=== PATIENT | male | born 1965 | race Caucasian/White ===

== ENCOUNTER 2024-09-04 09:46 | Day surgery (SDC) | payer OTHER, SELFPAY ==
[2024-09-03 11:07] VITALS: BMI 35.2
[2024-09-04 10:04] VITALS: BP 171/77; PULSE 78; RESP 16; TEMP 36.7; O2SAT 96
[2024-09-04] MEDS: LACTATED RINGERS 1000ML 1,000 ML 50 ML IV (10:09)
--- NOTE | 2024-09-04 11:21 | EXP.HP ---
History of Present Illness *Admission Date: 09/04/24 *Reason for visit:: Functional dyspepsia *History of present illness: Mr. Begum is a 59-year-old gentleman who is here for diagnostic upper endoscopy secondary to dysphagia and dyspepsia. The examination is deemed medically necessary for [default value]. The patient has been seen, interviewed and examined prior to the procedure by both myself and the anesthesia provider. [facility] Disclaimer: The information contained in this section may have been updated after the patient was seen, as this information can be updated by other users. Medical History Sleep apnea Functional dyspepsia Hemorrhoids GERD (gastroesophageal reflux disease) Surgical History History of cholecystectomy Family History Father Prostate cancer Social History Smoking Status: Never smoker alcohol intake: current alcohol intake frequency: holidays/special occasions only substance use type: denies use current occupational status: employed Travel in the last 8 weeks: None Have you lived/traveled outside [place] in past 30 days?: No Contact w/someone who lives/traveled outside US past 30 days?: No Exposure to someone with infectious disease in past 14 days?: No Do you have a fever (greater than 100.4 F or 38 C)?: No Have you tested positive for COVID-19: No Exposed to someone with COVID-19 in past 14 days?: No Do you have a sore throat?: No Do you have a cough?: No Do you have any weakness?: No Do you have any diarrhea?: No Are you experiencing any unusual bleeding?: No Do you have any muscle aches/pain?: No Do you have any abdominal pain?: No Are you experiencing loss of taste or smell?: No Review of Systems Review of Systems Review of systems (narrative): Negative *Cardiovascular Comments: Negative *Gastrointestinal Comments: Negative *Genitourinary Comments: Negative *Musculoskeletal Comments: Negative *Neurologic Comments: Negative Meds Home Medications and Allergies Home Medications ?Medication ?Instructions ?Recorded ?Confirmed ?Type aspirin 81 mg tablet,delayed 81 mg PO DAILY 07/11/24 09/04/24 History release (Adult Low Dose Aspirin) cholecalciferol (vitamin D3) 10 10 mcg PO DAILY 07/11/24 09/04/24 History mcg (400 unit) capsule escitalopram oxalate 10 mg tablet 10 mg PO DAILY 07/11/24 09/04/24 History metoprolol succinate 100 mg 100 mg PO DAILY 07/11/24 09/04/24 History tablet,extended release 24 hr omeprazole 40 mg capsule,delayed 40 mg PO DAILY 07/11/24 09/04/24 History release acetylcysteine 500 mg capsule 500 mg PO DAILY 07/14/24 09/04/24 History alpha lipoic acid 100 mg capsule 100 mg PO DAILY 07/14/24 09/04/24 History amlodipine 5 mg tablet 5 mg PO DAILY 07/14/24 09/04/24 History ascorbic acid (vitamin C) 500 mg 500 mg PO DAILY 07/14/24 09/04/24 History capsule,extended release berberine chloride 500 mg capsule 500 mg PO DAILY 07/14/24 09/04/24 History biotin 1,250 mcg-collagen 50 1 tab PO DAILY 07/14/24 09/04/24 History mg-vit C 67.5 mg-vit E-herbal chew tablet celecoxib 200 mg capsule 200 mg PO DAILY 07/14/24 09/04/24 History citrulline 600 mg capsule (Pure 1.8 g PO TID 07/14/24 09/04/24 History L-Citrulline) clonidine HCl 0.1 mg tablet 0.1 mg PO HS 07/14/24 09/04/24 History coenzyme Q10 10 mg capsule 10 mg PO TID 07/14/24 09/04/24 History cyanocobalamin (vitamin B-12) 1,000 mcg PO DAILY 07/14/24 09/04/24 History 1,000 mcg capsule fluconazole 150 mg tablet 150 mg PO DAILY 07/14/24 09/04/24 History gabapentin 300 mg capsule 300 mg PO BID 07/14/24 09/04/24 History garlic 300 mg capsule 300 mg PO DAILY 07/14/24 09/04/24 History irbesartan 300 mg tablet 300 mg PO DAILY 07/14/24 09/04/24 History krill oil 500 mg capsule 500 mg PO DAILY 07/14/24 09/04/24 History lutein 20 mg capsule 20 mg PO DAILY 07/14/24 09/04/24 History methocarbamol 500 mg tablet 500 mg PO HS 07/14/24 09/04/24 History olive leaf extract 250 mg capsule 250 mg PO DAILY 07/14/24 09/04/24 History quercetin 500 mg capsule 500 mg PO DAILY 07/14/24 09/04/24 History red yeast rice 600 mg capsule 600 mg PO DAILY 07/14/24 09/04/24 History triamterene 37.5 1 tab PO DAILY 07/14/24 09/04/24 History mg-hydrochlorothiazide 25 mg tablet turmeric root extract 300 mg 300 mg PO DAILY 07/14/24 09/04/24 History capsule (Curica Turmeric) New Prescriptions to Start Prescriptions: Allergies Allergy/AdvReac Type Severity Reaction Status Date / Time No Known Allergies Allergy Verified 09/04/24 10:00 Exam Data for Last 24 hours Vital signs and Labs for Last 24 Hours: Temp Pulse Resp BP Pulse Ox O2 Del Method 98.1 F 78 16 171/77 H 96 Room Air 09/04/24 10:04 09/04/24 10:04 09/04/24 10:04 09/04/24 10:04 09/04/24 10:04 09/04/24 10:04 I & O for Last 24 hours: Intake & Output 09/01/24 09/02/24 09/03/24 09/04/24 23:59 23:59 23:59 23:59 Weight 225 lb *Routine HEENT Exam Head: Present normocephalic Eye: Present EOMI and PERRL ENT: Present mucous membranes moist *Routine Neck Exam Neck: Present supple *Routine Respiratory Exam Respiratory: Present CTA bilaterally *Routine Cardiovascular Exam Cardiovascular: Present RRR *Routine Abdominal Exam Abdominal: Present soft and normoactive bowel sounds; Absent tenderness *Routine Rectal Exam Rectal:: deferred *Routine Genitalia Exam Genitalia:: deferred *Routine Extremities Exam Extremities: Absent cyanosis, clubbing or edema *Routine Skin Exam Skin: Present warm; Absent rash *Routine Neurological Exam Neurological: Present alert and oriented X3 Assessment and Plan *Assessment and plan (1) Dysphagia: Status: Acute Category: Medical Code(s): R13.10 - Dysphagia, unspecified (2) Functional dyspepsia: Status: Acute Category: Medical Code(s): K30 - Functional dyspepsia (3) GERD (gastroesophageal reflux disease): Status: Acute Category: Medical Code(s): K21.9 - Gastro-esophageal reflux disease without esophagitis (4) Bloating: Status: Acute Category: Medical Code(s): R14.0 - Abdominal distension (gaseous) Plan A/P: 1. Dysphagia and functional dyspepsia with GERD and bloating is the preprocedural diagnosis. The patient will be anesthetized/sedated using MAC sedation. The patient has been seen and examined. Cardiac and lung assessment prior to the examination is stable. Proceed with planned diagnostic EGD
--- NOTE | 2024-09-04 11:23 | EXP.ANES.CKL ---
[facility] Disclaimer: The information contained in this section may have been updated after the patient was seen, as this information can be updated by other users. Medical History Sleep apnea Functional dyspepsia Hemorrhoids GERD (gastroesophageal reflux disease) Surgical History History of cholecystectomy Family History Father Prostate cancer Social History Smoking Status: Never smoker alcohol intake: current alcohol intake frequency: holidays/special occasions only substance use type: denies use current occupational status: employed Travel in the last 8 weeks: None Have you lived/traveled outside US in past 30 days?: No Contact w/someone who lives/traveled outside US past 30 days?: No Exposure to someone with infectious disease in past 14 days?: No Do you have a fever (greater than 100.4 F or 38 C)?: No Have you tested positive for COVID-19: No Exposed to someone with COVID-19 in past 14 days?: No Do you have a sore throat?: No Do you have a cough?: No Do you have any weakness?: No Do you have any diarrhea?: No Are you experiencing any unusual bleeding?: No Do you have any muscle aches/pain?: No Do you have any abdominal pain?: No Are you experiencing loss of taste or smell?: No [facility] Anesthesia Checklist Patient Identification Patient Identification: Arm Band Structural Data Admitted From: Home Planned Operative Procedure/s: EGD Consent for Planned Operative Procedure(s) Verified: Yes Verified Documents: Surgical Consent and History and Physical NPO Status Verified Time NPO: 00:00 Additional verifications Anesthesia Reactions: No Airway Assessment Mallampati Score:: Class II C-Spine Mobility Assessed: Yes TMJ Mobility Assessed: Yes Dentition: Good Dentition Neurological Assessment Level of Consciousness: Awake, Alert and Appropriate Anesthesia Plan Anesthesia Risk discussed: Yes Anesthesia Plan: Verified ASA Class: II Anesthesia Type: MAC
--- NOTE | 2024-09-04 11:30 | P.PCN_ITS ---
[facility] Procedure Note Date: 09/04/24 Procedure Note:: Upper Endoscopy Procedure Report: Esophagogastroduodenoscopy with cold biopsies and TTS balloon dilation Endoscopost: Francesco Zuñiga II, MD Referring Physician: Edda Jamil MD, [address] [place] [address], [place] [address] Date of Procedure: September 04, 2024 Equipment: Olympus GIF 190 standard upper endoscope Sedation: MAC sedation Indications: Mr. Begum is a 59-year-old gentleman who is here for diagnostic evaluation of his dyspepsia. He has had marked bloating, fullness, early satiety and some dysphagia. He does get intermittent globus sensation. He does report some food regurgitation but little heartburn or reflux. This has worsened more recently. He does have obstipation/constipation and is trying to be more regular with the fiber bowel regimen. He did have panendoscopy with me in 2019 and had nonerosive GERD with moderate esophageal dysmotility and cricopharyngeal spasm. He did get improvement of his reflux with the fiber bowel regimen and Reglan. He has also been on omeprazole and VeedMe probiotic. He does get some choking and had struggled with recurrent thrush. He reports no melena or weight loss. He reports no nausea or vomiting. Procedure: Prior to the procedure, a history and physical exam was performed, and patient's medications and allergies were reviewed. The risks, benefits and alternatives of the sedation and procedure were discussed with the patient. All questions were answered and informed consent was obtained. The patient was brought to the procedure room. Patient identification and proposed procedure were verified by the physician and the nurse. The patient was placed in a left lateral decubitus position and the scope was passed under direct vision. Throughout the procedure, the patient's blood pressure, pulse, and oxygen saturations were monitored continuously. The upper GI endoscopy was accomplished without difficulty. The patient tolerated the procedure well. Findings: The scope was passed directly into the upper esophagus and advanced to the third portion of the duodenum. The post bulbar duodenum, ampulla and duodenal bulb were normal with normal mucosa and conniventes. The scope was withdrawn through a normal duodenal bulb and pylorus into the stomach. There was moderate bile reflux with mild linear reactive gastropathy of the antrum. Biopsies were taken from the antrum. The body and fundus of the stomach were normal. Upon retroflexion there was no hiatal hernia. The scope was then withdrawn into the esophagus. There was no evidence of reflux esophagitis or Maguire's. The Z-line was serrated but otherwise normal in appearance. There were strong tertiary contractions and evidence of moderate esophageal dysmotility. The entire esophagus was dilated to 60 Chinese/20 mm with a TTS hydrostatic balloon. There was some resistance at the cricopharyngeus. The remainder of the esophageal mucosa was normal. Impression: 1. Cricopharyngeal spasm status post dilation to 20 mm 2. Nonerosive GERD with moderate esophageal dysmotility 3. Bile reflux with mild linear reactive gastropathy of antrum Plan: I will follow-up the biopsies. The patient does have functional dyspepsia and functional GERD. I would resume the fiber bowel regimen (combined MiraLAX plus Konsyl) and consider [id number] herbal Iberogast twice daily. We will discuss dietary measures and additional treatment options.
[2024-09-04 11:32] VITALS: O2SAT 100
[2024-09-04 11:46] VITALS: BP 114/69; PULSE 74; RESP 16; TEMP 36.1; O2SAT 95
[2024-09-04 11:56] VITALS: BP 106/65; PULSE 78; RESP 16; O2SAT 96
[2024-09-04 12:06] VITALS: BP 106/66; PULSE 68; RESP 16; O2SAT 95
[2024-09-04 12:36] VITALS: BP 103/72; PULSE 65; RESP 16; O2SAT 96
[2024-09-05 10:15] LABS: POC Glucose,Bedside 140 (70-110)
== END 2024-09-04 12:43 | disposition home or self-care (01) ==
PROVIDERS: PCP Family Medicine; Visit Provider Internal Medicine Gastroenterology
PROC: 0DJ08ZZ Inspection of Upper Intestinal Tract, Via Natural or Artificial Opening Endoscopic (ICD-10-PCS; CPT 43239; principal; 2024-09-04 11:30)
DX: J39.2 Other diseases of pharynx (principal); K22.4 Dyskinesia of esophagus; K31.9 Disease of stomach and duodenum, unspecified; R13.10 Dysphagia, unspecified; K30 Functional dyspepsia; K21.9 Gastro-esophageal reflux disease without esophagitis; R14.0 Abdominal distension (gaseous)
CPT/HCPCS: 43239; 43249; 82962; C1726; J7120